=== PATIENT | male | born 1960 | race Caucasian/White ===

== ENCOUNTER 2018-11-22 08:56 | Emergency (ER) | payer BC, OTHER ==
--- NOTE | 2018-11-22 09:59 | CR ---
Chest: Two views of the chest were obtained. Comparison: No prior chest x-ray. Heart size and mediastinum are normal. Lungs are clear. Minimal apical pleural calcification is incidentally noted. Bony structures appear within normal limits for the patient's age. Impression: 1. Incidental findings. Nothing acute is appreciated on two-view chest x-ray. Diagnostic code #2
--- NOTE | 2018-11-22 10:21 | EDM.PDOC ---
ED HPI GENERAL MEDICAL PROBLEM - General Chief Complaint: Chest Pain Stated Complaint: BACK PAIN/CHEST PAIN THAT IS OFF AND ON Time Seen by Provider: 11/22/18 09:05 Source of Information: Reports: Patient History Limitations: Reports: No Limitations - History of Present Illness INITIAL COMMENTS - FREE TEXT/NARRATIVE: The patient presents with left upper back pain and left chest pain. This all started around [place] so about 2 weeks ago. He was outside a lot and breathing the cold air. The pain comes and goes. It is a sharp pain. It goes away when he lays down. He says it is not made worse by taking a deep breath. Last night he was eating some ice cream and the pain went to his left chest. He denies fever, chills, cough, shortness of breath, abdominal pain, nausea or vomiting. The pain is by his left shoulder blade. He has a history of low back problems with surgery. He has never had a blood clot in his lung or legs. He did have a stroke twice. He is currently on plavix. He does have hypercholesterolemia. Onset: Gradual Duration: Week(s): (2) Location: Reports: Chest, Back Quality: Reports: Sharp Severity: Moderate Improves with: Reports: Other (laying down) Worsens with: Reports: Other (standing up) Associated Symptoms: Reports: Chest Pain, Other (back pain) Left Shoulder Pain Score (Numeric/FACES): 4 - Related Data Allergies Allergy/AdvReac Type Severity Reaction Status Date / Time bee venom protein (honey bee) Allergy Swelling Verified 11/22/18 09:06 weed pollen Allergy Swelling Verified 11/22/18 09:06 Home Meds: Home Meds Aspirin [Adult Aspirin] 81 mg PO DAILY 11/22/18 [History] Clopidogrel [Plavix] 75 mg PO DAILY 11/22/18 [History] Lisinopril 10 mg PO DAILY 11/22/18 [History] atorvaSTATin [Lipitor] 10 mg PO BEDTIME 11/22/18 [History] Past Medical History HEENT History: Reports: Impaired Vision Other HEENT History: ewears corrective lenses Cardiovascular History: Reports: High Cholesterol, Hypertension Neurological History: Reports: CVA, TIA Hematologic History: Reports: Anticoagulation Therapy Social & Family History - Tobacco Use Smoking Status *Q: Former Smoker Used Tobacco, but Quit: Yes Month/Year Tobacco Last Used: 2002 - Caffeine Use Caffeine Use: Reports: Soda - Recreational Drug Use Recreational Drug Use: No ED ROS GENERAL - Review of Systems Review Of Systems: See Below Constitutional: Reports: No Symptoms HEENT: Reports: No Symptoms Respiratory: Reports: No Symptoms Cardiovascular: Reports: Chest Pain Endocrine: Reports: No Symptoms GI/Abdominal: Reports: No Symptoms : Reports: No Symptoms Musculoskeletal: Reports: Back Pain ED EXAM, GENERAL - Physical Exam Exam: See Below Exam Limited By: No Limitations General Appearance: Alert, No Apparent Distress Ears: Normal External Exam Nose: Normal Inspection Head: Atraumatic, Normocephalic Neck: Normal Inspection Respiratory/Chest: No Respiratory Distress, Lungs Clear, Normal Breath Sounds Cardiovascular: Regular Rate, Rhythm, No Edema, No Murmur GI/Abdominal: Soft, Non-Tender, No Organomegaly, No Mass Back Exam: Normal Inspection Extremities: Normal Inspection EKG INTERPRETATION EKG Date: 11/22/18 Time: 09:01 Rhythm: NSR Rate (Beats/Min): 68 [place]: Normal P-Wave: Present QRS: Normal ST-T: Normal QT: Normal Course - Vital Signs Last Recorded V/S: Last Vital Signs Temp 97.2 F 11/22/18 09:01 Pulse 71 11/22/18 09:01 Resp 18 11/22/18 09:01 BP 160/89 H 11/22/18 09:01 Pulse Ox 97 11/22/18 09:01 - Orders/Labs/Meds Orders: Active Orders 24 hr Category Date Time Status Cardiac Monitoring [RC] . DIRECTED Care 11/22/18 09:15 Active EKG Documentation Completion [RC] STAT Care 11/22/18 09:16 Active Labs: Laboratory Tests 11/22/18 11/22/18 11/22/18 Range/Units 09:35 09:35 09:35 WBC 6.93 (4.23-9.07) K/mm3 RBC 4.75 (4.63-6.08) M/mm3 Hgb 14.4 (13.7-17.5) gm/L Hct 42.5 (40.1-51.0) % MCV 89.5 (79.0-92.2) fl MCH 30.3 (25.7-32.2) pg MCHC 33.9 (32.2-35.5) g/dl RDW Std Deviation 42.6 (35.1-43.9) fL Plt Count 275 (163-337) K/mm3 MPV 9.3 L (9.4-12.3) fl Neut % (Auto) 65.5 (34.0-67.9) % Lymph % (Auto) 19.5 L (21.8-53.1) % [place] % (Auto) 12.3 H (5.3-12.2) % Eos % (Auto) 2.2 (0.8-7.0) Baso % (Auto) 0.4 (0.1-1.2) % Neut # (Auto) 4.54 (1.78-5.38) K/mm3 Lymph # (Auto) 1.35 (1.32-3.57) K/mm3 [place] # (Auto) 0.85 H (0.30-0.82) K/mm3 Eos # (Auto) 0.15 (0.04-0.54) K/mm3 Baso # (Auto) 0.03 (0.01-0.08) K/mm3 D-Dimer, Quantitative < 0.19 L (0.19-0.50) mg/L Sodium 141 (136-145) mEq/L Potassium 4.4 (3.5-5.1) mEq/L Chloride 104 (98-107) mEq/L Carbon Dioxide 29 (21-32) mEq/L Anion Gap 12.4 (5-15) BUN 9 (7-18) mg/dL Creatinine 1.1 (0.7-1.3) mg/dL Est Cr Clr Drug Dosing 78.91 mL/min Estimated GFR (MDRD) > 60 (>60) mL/min BUN/Creatinine Ratio 8.2 L (14-18) Glucose 104 (74-106) mg/dL Calcium 9.6 (8.5-10.1) mg/dL Total Bilirubin 0.5 (0.2-1.0) mg/dL AST 29 (15-37) U/L ALT 67 H (16-63) U/L Alkaline Phosphatase 77 (46-116) U/L Troponin I < 0.017 (0.00-0.056) ng/mL Total Protein 7.4 (6.4-8.2) g/dl Albumin 4.0 (3.4-5.0) g/dl Globulin 3.4 gm/dL Albumin/Globulin Ratio 1.2 (1-2) - Re-Assessments/Exams Free Text/Narrative Re-Assessment/Exam: 11/22/18 10:25 I ordered an EKG, CXR and labs. His EKG shows a NSR with no acute changes. His CXR looks good. His CBC looks good. His D-dimer was normal. I am waiting for his CMP and troponin. 11/22/18 10:32 His CMP and troponin look good. I feel this is pleurisy and thoracic back pain. I will discharge him home and have him take some antiinflammatories. Departure - Departure Time of Disposition: 10:35 Disposition: Home, Self-Care 01 Condition: Good Clinical Impression: Pleurisy Thoracic back pain Qualifiers: Chronicity: acute Back pain laterality: left Qualified Code(s): M54.6 - Pain in thoracic spine Referrals: Des Clement MD [Primary Care Provider] - 1 Week Forms: ED Department Discharge Additional Instructions: Take ibuprofen or aleve for pain. Ice your back as needed. Follow up with your chiropractor and doctor. Please return if you are worse. - My Orders Last 24 Hours: My Active Orders 11/22/18 09:15 Cardiac Monitoring [RC] . DIRECTED 11/22/18 09:16 EKG Documentation Completion [RC] STAT - Assessment/Plan Last 24 Hours: My Active Orders 11/22/18 09:15 Cardiac Monitoring [RC] . DIRECTED 11/22/18 09:16 EKG Documentation Completion [RC] STAT
== END 2018-11-22 10:44 | disposition home or self-care (01) ==
LOC: JD.ED 08:56
DX: R09.1 Pleurisy (principal); M54.6 Pain in thoracic spine; I10 Essential (primary) hypertension; E78.00 Pure hypercholesterolemia, unspecified; Z79.82 Long term (current) use of aspirin; Z79.899 Other long term (current) drug therapy; Z86.73 Personal history of transient ischemic attack (TIA), and cerebral infarction without residual deficits; Z87.891 Personal history of nicotine dependence; Z91.030 Bee allergy status; Z91.010 Allergy to peanuts
CPT/HCPCS: 36415; 71046; 71046-26; 80053; 84484; 85025; 85379; 93005; 93010; 99283; 99285-25

== ENCOUNTER 2023-10-09 03:28 | Emergency (ER) | payer OTHER ==
[2023-10-09] MEDS ORDERED: Ketorolac 60 MG/2 ML SDV IM ONE (04:00)
== END 2023-10-09 05:00 | disposition home or self-care (01) ==
LOC: JD.ED 03:28
DX: M54.6 Pain in thoracic spine (principal); I10 Essential (primary) hypertension; E78.00 Pure hypercholesterolemia, unspecified; Z79.899 Other long term (current) drug therapy; Z87.891 Personal history of nicotine dependence; Z86.73 Personal history of transient ischemic attack (TIA), and cerebral infarction without residual deficits; Z91.030 Bee allergy status; Z91.048 Other nonmedicinal substance allergy status; Z79.02 Long term (current) use of antithrombotics/antiplatelets; Z79.01 Long term (current) use of anticoagulants
CPT/HCPCS: 72070; 72070-26; 96372; 99283; J1885